=== PATIENT | female | born 1950 | race African-American/Black ===

== ENCOUNTER 2018-11-05 11:49 | Inpatient (IN) | payer OTHER ==
[2018-11-05] MEDS ORDERED: morphine CARPU-JECT 4 MG/1 ML DISP.SYRIN IVPUSH ONE (12:12)
--- NOTE | 2018-11-05 12:20 | PDOC ---
History of Present Illness - General Chief Complaint: Injury Stated Complaint: FALL Time Seen by Provider: 11/05/18 12:06 - History of Present Illness Initial Comments: Ms. Darling is a 67 y/o female with hx of HTN, DM, presenting s/p mechanical fall prior to arrival. Reports that she was walking through a wet lobby in her apartment complex when she slipped. Landed on her left elbow and left hip. Reports left leg and hip pain 12/15. Denies head injury, denies LOC. Denies neck pain. Denies dizziness or lightheadedness or heart palpitations prior to fall. Denies left arm pain. Meds: takes aspirin, no other blood thinners Past History - Past Medical History Allergies/Adverse Reactions: Allergies Allergy/AdvReac Type Severity Reaction Status Date / Time No Known Drug Allergies Allergy Verified 11/05/18 12:03 Home Medications: Ambulatory Orders Lisinopril [Prinivil] 30 mg PO DAILY 05/17/15 Verapamil HCl [Verapamil ER] 240 mg PO DAILY 05/17/15 Insulin Sliding Scale [Novolog Vial Sliding Scale -] See Protocol SCJ TID Sitagliptin Phosphate [Januvia] 100 mg PO DAILY 11/05/18 Anemia: No Asthma: No Cancer: Yes (Gallbladder, LIVER) Cardiac Disorders: No CVA: No COPD: No CHF: No Dementia: No Diabetes: Yes GI Disorders: No Disorders: No HTN: Yes Hypercholesterolemia: No Liver Disease: No Seizures: No Thyroid Disease: No - Surgical History Abdominal Surgery: Yes (LIVER) Appendectomy: No Cardiac Surgery: No Cholecystectomy: No Lung Surgery: No Neurologic Surgery: No Orthopedic Surgery: No - Immunization History Immunization Up to Date: No - Suicide/Smoking/Psychosocial Hx Smoking Status: No Smoking History: Never smoked Have you smoked in the past 12 months: No Number of Cigarettes Smoked Daily: 0 If you are a former smoker, when did you quit?: 1979 Information on smoking cessation initiated: No Hx Alcohol Use: No Drug/Substance Use Hx: No Substance Use Type: None Hx Substance Use Treatment: No Review of Systems - Review of Systems Comments:: ROS GENERAL/CONSTITUTIONAL: No fever or chills. No weakness._ HEAD, EYES, EARS, NOSE AND THROAT: No change in vision. No ear pain or discharge. No sore throat._ CARDIOVASCULAR: No chest pain or shortness of breath_ RESPIRATORY: Denies cough, hemoptysis_ GASTROINTESTINAL: No nausea, vomiting, diarrhea or constipation._ GENITOURINARY: No dysuria, frequency, or change in urination._ MUSCULOSKELETAL: No neck or back pain. Reports left hip and leg swelling and pain. SKIN: No rash. No bruises. NEUROLOGIC: No headache, vertigo, loss of consciousness, or change in strength/ sensation._ ENDOCRINE: No increased thirst. No abnormal weight change_ HEMATOLOGIC/LYMPHATIC: No anemia, easy bleeding, or history of blood clots._ ALLERGIC/IMMUNOLOGIC: No hives or skin allergy._ *Physical Exam - Vital Signs Last Vital Signs Temp Pulse Resp BP Pulse Ox 98.7 F 77 21 H 201/107 H 100 11/05/18 12:00 11/05/18 12:00 11/05/18 12:00 11/05/18 12:11/05/18 12:00 - Physical Exam Comments: GENERAL: Awake, alert, and oriented to person/place/time, in moderate distress. HEAD: No signs of trauma, normocephalic, atraumatic. No perry signs or raccoon' s eyes. EYES: PERRLA, EOMI, sclera anicteric, conjunctiva clear. ENT: Hearing grossly normal, nares patent, oropharynx clear without exudates. No uvular deviation. Moist mucosa. NECK: Normal ROM, supple, no lymphadenopathy, JVD, or masses_ LUNGS: No distress, speaks in full sentences, clear to auscultation bilaterally. HEART: Regular rate and rhythm, normal S1 and S2, no murmurs appreciated, peripheral pulses normal and equal bilaterally. ABDOMEN: Soft, nontender, normoactive bowel sounds. No guarding, no rebound. No masses. EXTREMITIES: Upper extremities - normal inspection, no bruises, 5/5 strength and sensation bilaterally. LLE - limited ROM 2/2 pain, TTP over lateral aspect of thigh and lateral aspect of hip. No bruising. 2+ pedal pulses. Sensation intact distally. Flexion/ extension of ankle intact. Possible shortening of left lower extremity. Cap refill < 2 sec. RLE - normal inspection. No bruising. 2+ pedal pulses. Sensation intact and equal bilaterally. Flexion/extension of ankle intact. Cap refill < 2 sec. NEUROLOGICAL: Cranial nerves II through XII grossly intact. Normal speech, no focal sensorimotor deficits _ SKIN: Warm, Dry, normal turgor, no rashes or lesions noted. ED Treatment Course - LABORATORY CBC & Chemistry Diagram: 11/05/18 12:30 11/05/18 15:24 Medical Decision Making - Medical Decision Making 11/05/18 12:15 67F on aspirin presenting s/p mechanical fall. Denies head injury or LOC. No c- spine tenderness. Left leg pain and possible femur fx and possible shortening of left leg. Neurovascularly intact distally. Will obtain CBC, CMP, PT/PTT/INR, type and screen, CT head, XR left hip/pelvis/ femur 11/05/18 14:08 CT head shows no acute intracranial pathology. XR hip/pelvis/femur shows no fracture. 11/05/18 14:30 Patient reassessed. Continues to have pain in the left thigh and hip. Difficult to sit, stand, and ambulate 2/2 pain though reports that morphine helped control some pain. Ambulation trial after 2 percocet PO. 11/05/18 16:32 Pt reassessed. Able to sit up and stand up with minimal pain, but requires two person assistance to walk with pain on the posterior thigh. Lives in a 1 story apartment with two daughters. No stairs. 11/05/18 16:45 PT office called several times for consult and evaluation request. Was not able to connect by phone. 11/05/18 17:11 Discussed with the patient and family members, who are in agreement to admit the patient overnight for pain control and physical therapy consult in the morning. 11/05/18 18:[address] Goodson who agrees to admit the patient. *DC/Admit/Observation/Transfer Diagnosis at time of Disposition: Leg pain Qualifiers: Laterality: left Qualified Code(s): M79.605 - Pain in left leg - Discharge Dispostion Condition at time of disposition: Stable Decision to Admit order: Yes - Referrals Referrals: Joel Goodson MD [Primary Care Provider] - - Patient Instructions - Post Discharge Activity
[2018-11-05] MEDS ORDERED: MORPHINE SULFATE 2 MG/ML VIAL ONE (12:33)
[2018-11-05 12:41] LABS: BASO % 1.5 % (0-2.0); EOS % 1.8 % (0-4.5); HEMATOCRIT 36.3 % (32.4-45.2); HEMOGLOBIN 12.5 GM/dL (10.7-15.3); LYMPH % 33.2 % (8-40); MCHC 34.3 g/dl (32.0-36.0); MEAN CELL VOLUME 90.5 fl (80-96); MEAN PLT VOLUME 9.4 fl (7.5-11.1); MONO % 10.6 % (3.8-10.2); NEUT % 52.9 % (42.8-82.8); PLATELET COUNT 277 K/MM3 (134-434); RBC 4.02 M/mm3 (3.60-5.2); RDW 14.8 % (11.6-15.6); WHITE BLOOD COUNT 6.2 K/mm3 (4.0-10.0)
[2018-11-05 12:55] LABS: INR 1.05 (0.83-1.09); PROTHROMBIN TIME (PATIENT) 12.4 SEC (9.7-13.0)
[2018-11-05 12:58] LABS: ACTIVATED PTT 37.3 SECONDS (25.2-36.5)
--- NOTE | 2018-11-05 14:41 | PDOC ---
Documentation entered by Beba Chandra SCRIBE, acting as scribe for Stanford lBas MD. Stanford Blas MD: This documentation has been prepared by the jackibe, Beba Chandra SCRIBE, under my direction and personally reviewed by me in its entirety. I confirm that the documentation accurately reflects all work, treatment, procedures, and medical decision making performed by me. Attending Attestation - Resident Resident Name: Philip Trevizohan - ED Attending Attestation I have performed the following: I have examined & evaluated the patient, The case was reviewed & discussed with the resident, I agree w/resident's findings & plan, Exceptions are as noted - HPI HPI: 11/05/18 12:43 The patient is a 67-year-old female, with a past medical history of HTN, DM, gallbladder ca, and liver ca, who presents to the ED s/p mechanical fall today. The patient states that she was walking through the lobby of her apartment complex and slipped and fell on the wet floor. Patient landed on her LT elbow and LT hip. She is now complaining of L thigh and LT hip pain that is 9/10 in severity. She denies any head trauma or loss of consciousness. The patient denies any chest pain, palpitations, or shortness of breath. Denies any fevers, chills, nausea, vomiting, diarrhea, or abdominal pain. Allergies: NKDA PCP: Dr. Hamzah Maldonado - Physicial Exam PE: 11/05/18 12:44 GENERAL: Awake, alert, and fully oriented, in no acute distress. HEAD: No signs of trauma EYES: PERRLA, EOMI, sclera anicteric, conjunctiva clear ENT: Auricles normal inspection, hearing grossly normal, nares patent, oropharynx clear without exudates. Moist mucosa NECK: Nontender, no stepoffs, Normal ROM, supple, no lymphadenopathy, JVD, or masses LUNGS: Breath sounds equal, clear to auscultation bilaterally. No wheezes, and no crackles HEART: Regular rate and rhythm, normal S1 and S2, no murmurs, rubs or gallops ABDOMEN: Soft, nontender, normoactive bowel sounds. No guarding, no rebound. No masses EXTREMITIES: + TTP L femur, no deformity or shortening, No clubbing or cyanosis. No cords, erythema, or tenderness NEUROLOGICAL: Cranial nerves II through XII intact. 5/5 strength and sensation in all extremities, Normal speech, normal gait, normal cerebellar function SKIN: Warm, Dry, normal turgor, no rashes or lesions noted. - Medical Decision Making 11/05/18 14:44 67 F with L hip and thigh pain after mechanical fall today. - XR with no acute fx - Pt received morphine 4mg IV Pt reassessed after XR and morphine - still with severe pain, inability to bear weight or ambulate Will administer 2 percocet and reassess 11/05/18 17:16 Pt reassessed - still with significant difficulty standing Attempted to call for PT eval, but no response Will admit for pain control and PT
[2018-11-05 16:03] LABS: ALBUMIN 3.3 g/dl (3.4-5.0); BILIRUBIN,TOTAL 0.4 mg/dL (0.2-1); BLOOD UREA NITROGEN 14.7 mg/dL (7-18); CALCIUM 8.9 mg/dL (8.5-10.1); TOT PROT 7.5 g/dl (6.4-8.2)
[2018-11-05] MEDS ORDERED: morphine CARPU-JECT 2 MG/1 ML DISP.SYRIN IM ONE (19:07)
[2018-11-05] MEDS ORDERED: MEPERIDINE HCL 50 MG/ML VIAL IM PRN (20:25)
[2018-11-05] MEDS ORDERED: INSULIN (LEVEMIR) 100 UNITS/ML UNITS SQ SCH (22:00)
[2018-11-06 00:05] VITALS: BMI 32.3
[2018-11-06] MEDS: INSULIN SLIDING SCALE (NOVOLOG) 1 VIAL SQ SCH ×2 (07:13→12:44)
[2018-11-06] MEDS ORDERED: LISINOPRIL 10 MG TABLET (FP) PO SCH (10:00)
[2018-11-06] MEDS ORDERED: VERAPAMIL HCL 240 MG E.R. TABLET PO SCH (10:00)
--- NOTE | 2018-11-06 10:03 | HP ---
DATE OF ADMISSION: 11/05/2018 HISTORY OF PRESENT ILLNESS: This is a 67-year-old female known to have diabetes, hypertension, CA of the gallbladder resected 4 years ago. No new complaints. Yesterday, she fell in the hallway and was brought to the emergency room with complaints of severe pain, left hip and left elbow. Workup in the ER was negative, no fracture. This morning, patient still has pain in the left hip, but she wants to go home. PHYSICAL EXAMINATION: General: Awake, alert, oriented, not in distress. Vital signs: BP 130/80, pulse 72, respirations 20, temperature 98. HEENT: Unremarkable. Neck: Supple. No JVD. Lungs: Clear. Heart: S1, S2 normal. No S3, S4. Abdomen: Soft. Extremities: Legs, no edema. Neurologic: Grossly normal. LABORATORY REPORTS: WBC 6, hemoglobin 12.5, hematocrit 36.3. Chemistry: Electrolytes are normal, blood sugar 179. INR 1. X-rays of the hip, elbow, and CT of the head evaluated; nothing, no fracture. IMPRESSION: Patient has pain, left hip status post fall. PLAN: Continue present mediations, pain killers. Can be discharged home. observation status. Kyle [id number]
[2018-11-06] MEDS ORDERED: PT OWN MED DRAWER 7, Y5N ONE (10:08)
[2018-11-06 10:25] VITALS: BP 156/96; PULSE 85; TEMP 98.3
[2018-11-06] MEDS ORDERED: ACETAMINOPHEN WITH CODEINE 300MG/30MG TABLET PO ONE (11:30)
--- NOTE | 2018-11-06 14:15 | EKG ---
Test Reason : Blood Pressure : / mmHG Vent. Rate : 067 BPM Atrial Rate : 067 BPM P-R Int : 144 ms QRS Dur : 082 ms QT Int : 420 ms P-R-T Axes : 055 012 007 degrees QTc Int : 443 ms NORMAL SINUS RHYTHM NONSPECIFIC T WAVE ABNORMALITY WHEN COMPARED WITH ECG OF 17-FEB-2014 09:40, NONSPECIFIC T WAVE ABNORMALITY, WORSE IN LATERAL LEADS Confirmed by HESHAM ANDREA MD ([id number]) on 11/06/2018 2:15:26 PM Referred By: Confirmed By:HESHAM ANDREA MD
== END 2018-11-06 13:39 | disposition home or self-care (01) | DRG 556 ==
LOC: JER 11:49 → JERBED 17:59 → J7W 19:56
PROVIDERS: ADMIT Internal Medicine; ATTEND Internal Medicine
DX: M79.605 Pain in left leg (principal); I10 Essential (primary) hypertension; E11.9 Type 2 diabetes mellitus without complications; W01.0XXA Fall on same level from slipping, tripping and stumbling without subsequent striking against object, initial encounter; Z85.05 Personal history of malignant neoplasm of liver; Y92.238 Other place in hospital as the place of occurrence of the external cause; Z85.89 Personal history of malignant neoplasm of other organs and systems
CPT/HCPCS: 36415; 70450-TC; 73523-TC-FY; 73552-TC-LT-FY; 80053; 82962; 85025; 85610; 85730; 86850; 86900; 86901; 93005; 93010; 97116-GP; 97161-GP; 99284-25; J2175

== ENCOUNTER 2019-05-04 12:44 | Inpatient (IN) | payer OTHER ==
--- NOTE | 2019-05-04 13:39 | PDOC ---
*Physical Exam - Vital Signs Last Vital Signs Temp Pulse Resp BP Pulse Ox 98.1 F 106 H 17 139/82 97 05/04/19 12:48 05/04/19 12:48 05/04/19 12:48 05/04/19 12:48 05/04/19 12:48 ED Treatment Course - LABORATORY CBC & Chemistry Diagram: 05/04/19 14:00 05/04/19 14:00 Medical Decision Making - Medical Decision Making 05/04/19 13:35 Patient seen and evaluated as pre-attending with Dr. Trevizo (PGY-1) 68 y/o female with a PMHx of GB carcinoma, hysterectomy presents w/5 day h/o nausea one day h/o bilious vomiting. No fevers/no chills. Last BM earlier today and was small and of harder consistency than normal. PE significant for tachycardia at presentation (not tachycardic on my exam) and RLQ TTP w/peritoneal sign. Will evaluate with CTAP - consider early appendicitis, SBO; GI cocktail, belly labs. No epigastric TTP - low clinical suspicion for epigastric pain as anginal equivalent. Reassess. 05/04/19 14:33 CTAP:There is possible slight concentric diffuse appendiceal wall hyperenhancement - ? possible early subtle acute appendicitis. Correlate clinically. 05/04/19 18:33 Dr. Trevizo discussed case w/Dr. Vásquez 05/04/19 18:44 Dr. Vásquez to evaluate patient @ bedside tomorrow morning. NPO + Fluid resuscitation Will admit to Dr. Goodson Discharge - Discharge Information Problems reviewed: Yes Clinical Impression/Diagnosis: Abdominal pain Condition: Fair - Follow up/Referral Referrals: Joel Goodson MD [Primary Care Provider] - - Patient Discharge Instructions - Post Discharge Activity
[2019-05-04] MEDS ORDERED: SODIUM CHLORIDE 0.9% 500 ML INFUS.BAG IV ONE ×2 (13:44→18:42)
[2019-05-04] MEDS ORDERED: ONDANSETRON 4 MG/2 ML VIAL IVPUSH ONE ×2 (13:44→18:18)
--- NOTE | 2019-05-04 13:45 | PDOC ---
History of Present Illness - General Chief Complaint: Weakness Stated Complaint: WEAKNESS Time Seen by Provider: 05/04/19 13:24 - History of Present Illness Initial Comments: Ms. Darling is a 68 y/o female with PMH significant for DM, HTN, presenting today for nausea and vomiting that started yesterday. Reports numerous episodes of vomiting that started yesterday evening. Reports that the vomit was originally orange in color but now is green. Denies fever, reports chills. Denies cough. Reports mild abdominal pain on the right side diffusely. Reports constipation. Denies dysuria/diarrhea. No sick contacts. No recent travel. Had rice and beans for dinner last night. SurgHx: hx of gallbladder CA s/p resection, hysterectomy Past History - Past Medical History Allergies/Adverse Reactions: Allergies Allergy/AdvReac Type Severity Reaction Status Date / Time No Known Drug Allergies Allergy Verified 05/04/19 12:47 Home Medications: Ambulatory Orders Lisinopril [Prinivil] 30 mg PO DAILY 05/17/15 Verapamil HCl [Verapamil ER] 240 mg PO DAILY 05/17/15 Insulin Degludec [Tresiba Flextouch U-100] 100 unit SQ HS 11/05/18 Insulin Sliding Scale [Novolog Vial Sliding Scale -] See Protocol SCJ TID Sitagliptin Phosphate [Januvia] 100 mg PO DAILY 11/05/18 Anemia: No Asthma: No Cancer: Yes (Gallbladder, LIVER) Cardiac Disorders: No CVA: No COPD: No CHF: No Dementia: No Diabetes: Yes GI Disorders: No Disorders: No HTN: Yes Hypercholesterolemia: No Liver Disease: No Seizures: No Thyroid Disease: No - Surgical History Abdominal Surgery: Yes (LIVER BIOPSY) Appendectomy: No Cardiac Surgery: No Cholecystectomy: Yes Lung Surgery: No Neurologic Surgery: No Orthopedic Surgery: No - Immunization History Immunization Up to Date: No - Psycho Social/Smoking Cessation Hx Smoking Status: No Smoking History: Never smoked Have you smoked in the past 12 months: No Number of Cigarettes Smoked Daily: 0 If you are a former smoker, when did you quit?: 1979 Hx Alcohol Use: No Drug/Substance Use Hx: No Substance Use Type: None Hx Substance Use Treatment: No Review of Systems - Review of Systems Comments:: GENERAL/CONSTITUTIONAL: No fever or chills. No weakness._ HEAD, EYES, EARS, NOSE AND THROAT: No change in vision. No change in hearing. No sore throat._ CARDIOVASCULAR: No chest pain or shortness of breath_ RESPIRATORY: Denies cough, hemoptysis_ GASTROINTESTINAL: Reports nausea, vomiting, diarrhea. GENITOURINARY: No dysuria, frequency, or change in urination._ MUSCULOSKELETAL: No joint or muscle swelling or pain. No neck or back pain._ SKIN: No rash_ NEUROLOGIC: No headache, vertigo, loss of consciousness, or change in strength/ sensation._ ENDOCRINE: No increased thirst. No abnormal weight change_ HEMATOLOGIC/LYMPHATIC: No anemia, easy bleeding, or history of blood clots._ ALLERGIC/IMMUNOLOGIC: No hives or skin allergy._ *Physical Exam - Vital Signs Last Vital Signs Temp Pulse Resp BP Pulse Ox 98.1 F 106 H 17 139/82 97 05/04/19 12:48 05/04/19 12:48 05/04/19 12:48 05/04/19 12:48 05/04/19 12:48 - Physical Exam GENERAL: Awake, alert, and oriented to person/place/time, in no acute distress_ HEAD: No signs of trauma, normoc ephalic, atraumatic _ EYES: PERRLA, EOMI, sclera anicteric, conjunctiva clear_ ENT: Hearing grossly normal, nares patent, oropharynx clear without exudates. No uvular deviation. Moist mucosa_ NECK: Normal ROM, supple, no lymphadenopathy, JVD, or masses_ LUNGS: No distress, speaks in full sentences, clear to auscultation bilaterally _ HEART: Regular rate and rhythm, normal S1 and S2, no murmurs appreciated, peripheral pulses normal and equal bilaterally._ ABDOMEN: Soft, diffuse TTP RLQ and RUQ, normoactive bowel sounds. No guarding, no rebound. No masses_ EXTREMITIES: Normal inspection, Normal range of motion, no edema. No clubbing or cyanosis_ NEUROLOGICAL: Cranial nerves II through XII grossly intact. Normal speech, normal gait, no focal sensorimotor deficits _ SKIN: Warm, Dry, normal turgor, no rashes or lesions noted_ ED Treatment Course - LABORATORY CBC & Chemistry Diagram: 05/04/19 14:00 05/04/19 14:00 Medical Decision Making - Medical Decision Making 05/04/19 13:44 68F hx of DM HTN presenting with nausea and vomiting over the past day. DDx is broad and includes viral gastroenteritis vs intra-abdominal infection vs SBO. -cbc, cmp, lipase, lactic -ua, ucx -fluids, zofran 05/04/19 18:00 CT abd w/ contrast shows possible subtle subacute appendicitis. Labs reviewed. Laboratory Tests 05/04/19 05/04/19 05/04/19 14:00 14:00 14:00 WBC 7.2 RBC 4.60 Hgb 14.0 Hct 42.1 D MCV 91.4 MCH 30.5 MCHC 33.4 RDW 14.4 Plt Count 214 D MPV 8.4 D Absolute Neuts (auto) 6.5 Neutrophils % 89.3 H D Lymphocytes % 5.9 L D Monocytes % 4.6 Eosinophils % 0.1 D Basophils % 0.1 Nucleated RBC % 0 Sodium 137 Potassium 4.6 Chloride 104 Carbon Dioxide 27 Anion Gap 6 L BUN 21.7 H Creatinine 1.2 Est GFR (CKD-EPI)AfAm 54.16 Est GFR (CKD-EPI)NonAf 46.73 Random Glucose 155 H Lactic Acid 1.9 Calcium 8.9 Total Bilirubin 0.8 AST 38 H ALT 41 Alkaline Phosphatase 88 Total Protein 7.9 Albumin 3.6 Lipase Urine Color Urine Appearance Urine pH Ur Specific [place] Urine Protein Urine Glucose (UA) Urine Ketones Urine Blood Urine Nitrite Urine Bilirubin Urine Urobilinogen Ur Leukocyte Esterase Urine WBC (Auto) Urine RBC (Auto) Urine Casts (Auto) U Pathogenic Cast Auto U Epithel Cells (Auto) Urine Bacteria (Auto) 05/04/19 05/04/19 14:00 17:00 WBC RBC Hgb Hct MCV MCH MCHC RDW Plt Count MPV Absolute Neuts (auto) Neutrophils % Lymphocytes % Monocytes % Eosinophils % Basophils % Nucleated RBC % Sodium Potassium Chloride Carbon Dioxide Anion Gap BUN Creatinine Est GFR (CKD-EPI)AfAm Est GFR (CKD-EPI)NonAf Random Glucose Lactic Acid Calcium Total Bilirubin AST ALT Alkaline Phosphatase Total Protein Albumin Lipase 44 L Urine Color Yellow Urine Appearance Cloudy Urine pH 6.5 Ur Specific [place] 1.023 Urine Protein Trace Urine Glucose (UA) Negative Urine Ketones Negative Urine Blood Negative Urine Nitrite Negative Urine Bilirubin Negative Urine Urobilinogen 1.0 Ur Leukocyte Esterase 1+ H Urine WBC (Auto) 9 Urine RBC (Auto) 1 Urine Casts (Auto) 13 U Pathogenic Cast Auto None U Epithel Cells (Auto) 12.3 Urine Bacteria (Auto) 916.0 05/04/19 18:40 D/w Dr. Vásquez, who recommends fluid resuscitation at 1L bolus and 150 cc/hr NS. Requests that the patient be admitted and she will reassess in the morning. Requests no antibiotics and no narcotic pain medications until she is able to assess the patient in the morning. Reports that the patient be made NPO. 05/04/19 20:04 D/w Dr. Vogt who accepts the patient for Dr. Goodson. Discharge - Discharge Information Problems reviewed: Yes Clinical Impression/Diagnosis: Abdominal pain Condition: Fair - Admission Yes - Follow up/Referral - Patient Discharge Instructions - Post Discharge Activity
[2019-05-04 14:42] LABS: BASO % 0.1 % (0-2.0); EOS % 0.1 % (0-4.5); HEMATOCRIT 42.1 % (32.4-45.2); LYMPH % 5.9 % (8-40); MCH 30.5 pg (25.7-33.7); MCHC 33.4 g/dl (32.0-36.0); MEAN CELL VOLUME 91.4 fl (80-96); MEAN PLT VOLUME 8.4 fl (7.5-11.1); MONO % 4.6 % (3.8-10.2); NEUT % 89.3 % (42.8-82.8); PLATELET COUNT 214 K/MM3 (134-434); RDW 14.4 % (11.6-15.6); WHITE BLOOD COUNT 7.2 K/mm3 (4.0-10.0)
[2019-05-04] MEDS ORDERED: ONDANSETRON 4 MG/2 ML VIAL ONE ×2 (15:07→18:43)
[2019-05-04] MEDS ORDERED: ONDANSETRON *ODT* 4 MG TABLET ONE (15:07)
[2019-05-04 15:26] LABS: ALBUMIN 3.6 g/dl (3.4-5.0); BILIRUBIN,TOTAL 0.8 mg/dL (0.2-1); BLOOD UREA NITROGEN 21.7 mg/dL (7-18); CALCIUM 8.9 mg/dL (8.5-10.1); CREATININE 1.2 mg/dL (0.55-1.3); POTASSIUM 4.6 mmol/L (3.5-5.1); TOT PROT 7.9 g/dl (6.4-8.2)
[2019-05-04 17:47] LABS: EPI CELLS 12.3 /HPF (0-5/HPF); HYALINE CASTS 13 /lpf (0-8); PH,URINE 6.5 (5.0-8.0); URINE APPEARANCE CLOUDY; URINE BILIRUBIN NEGATIVE (NEGATIVE); URINE COLOR YELLOW; URINE GLUCOSE (UA) NEGATIVE (NEGATIVE); URINE KETONE NEGATIVE (NEGATIVE); URINE LEUK ESTERASE 1+ (NEGATIVE); URINE NITRITE NEGATIVE (NEGATIVE); URINE PROTEIN TRACE (NEGATIVE); URINE RBC 1 /hpf (0-4); URINE WBC 9 /hpf (0-5)
[2019-05-04] MEDS ORDERED: SODIUM CHLORIDE 1,000 ML IV SCH ×2 (18:45→20:45)
[2019-05-04] MEDS ORDERED: ONDANSETRON 4 MG/2 ML VIAL IVPUSH PRN (20:33)
[2019-05-04] MEDS ORDERED: ACETAMINOPHEN 1000 MG/100 ML VIAL (NON FORMULARY) IVPB PRN (20:35)
[2019-05-04] MEDS: PANTOPRAZOLE SODIUM 40 MG VIAL IVPUSH SCH (21:00)
[2019-05-04] MEDS ORDERED: PANTOPRAZOLE SODIUM 40 MG VIAL ONE (21:01)
--- NOTE | 2019-05-04 22:47 | PDOC ---
Documentation entered by Mello Altamirano SCRIBE, acting as scribe for Alexandre Hunt MD. Alexandre Hunt MD: This documentation has been prepared by the Adarsh valdez Daniel, SCRIBE, under my direction and personally reviewed by me in its entirety. I confirm that the documentation accurately reflects all work, treatment, procedures, and medical decision making performed by me. Attending Attestation - Resident Resident Name: Mike Trevizo - ED Attending Attestation I have performed the following: I have examined & evaluated the patient, The case was reviewed & discussed with the resident, I agree w/resident's findings & plan, Exceptions are as noted - HPI HPI: 05/04/19 13:40 The patient is a 68 year old female with a past medical history of HTN, gallbladder cancer, liver cancer, hysterectomy, and diabetes here today for evaluation of vomiting. The patient reports that she developed nausea 5 days which worsened yesterday when she developed vomiting. She describes her emesis as orange first which then turned green. She also notes associated chills, constipation, and right sided abdominal pain. SHe reports a small hard BM today. Patient denies headache, lightheadedness. Denies fever. Denies chest pain, shortness of breath. Denies diarrhea. Allergies: NKDA PCP: Joel Goodson - Physicial Exam PE: 05/04/19 13:40 GENERAL: Awake, alert, and fully oriented, in no acute distress but appears uncomfortable EYES: PERRLA, EOMI, sclera anicteric, conjunctiva clear ENT: Oropharynx clear without exudates. Moist mucosa NECK: Normal ROM, supple, no lymphadenopathy, JVD, or masses LUNGS: Breath sounds equal, clear to auscultation bilaterally. No wheezes, and no crackles HEART: Regular rate and rhythm, normal S1 and S2, no murmurs, rubs or gallops ABDOMEN: Soft, non distended, +RLQ ttp, no rebound or guarding. Normoactive bowel sounds. No masses. +large well healed scar over RUQ/midline. No CVAT EXTREMITIES: Normal range of motion, no edema. No clubbing or cyanosis. No cords , erythema, or tenderness BACK: No midline spinal tenderness in cervical/thoracic/lumbar region NEUROLOGICAL: Normal speech, CN intact, equal strength and sensation b/l SKIN: Warm, Dry, normal turgor, no rashes or lesions noted. - Medical Decision Making 68yo F presents to the ED with R sided abd pain a/w chills, nausea, emesis, constipation Vitals wnl Exam with RLQ ttp Labs/UA wnl CTAP with possible early appy Case discussed with Dr. Vásquez by Dr. Trevizo, will evaluate pt Pt admitted for further mgmt/dispo
[2019-05-05 00:32] VITALS: BMI 32.6
[2019-05-05 08:24] LABS: BASO % 0.3 % (0-2.0); EOS % 0.8 % (0-4.5); HEMATOCRIT 34.4 % (32.4-45.2); HEMOGLOBIN 11.2 GM/dL (10.7-15.3); LYMPH % 36.4 % (8-40); MCH 30.1 pg (25.7-33.7); MCHC 32.7 g/dl (32.0-36.0); MEAN CELL VOLUME 92.2 fl (80-96); MEAN PLT VOLUME 8.2 fl (7.5-11.1); MONO % 13.2 % (3.8-10.2); NEUT % 49.3 % (42.8-82.8); PLATELET COUNT 167 K/MM3 (134-434); RBC 3.73 M/mm3 (3.60-5.2); RDW 14.6 % (11.6-15.6)
--- NOTE | 2019-05-05 08:40 | HP ---
Admitting History and Physical - Primary Care Physician PCP: Joel Goodson - Admission Chief Complaint: Nausea vomiting History of Present Illness: 68-year-old female history of hypertension type 2 diabetes mellitus invasive CA gallbladder status post resection and resection of right lobe of liver in 2013 at [facility], subsequently received chemotherapy and radiation therapy now doing well, yesterday presented with history of nausea vomiting without any associated fevers chills also complained of mild abdominal pain on arrival to ED patient was afebrile normal CBC BMP, vomiting was multiple, associated with nausea and colicky abdominal pain initially orange-green in color patient denies any dysuria, diarrhea, URTI symptoms, in the ED CT abdomen shows questionable early inflammation appendix, surgery was consulted recommended no narcotic pain medication or antibiotic overnight symptoms improved patient remained afebrile T WBC is trending normal. History Source: Patient Limitations to Obtaining History: No Limitations - Past Medical History Cardiovascular: Yes: HTN Hepatobiliary: Yes: Cholelithiasis Renal/: Yes: Cancer (Gallbladder) Endocrine: Yes: Diabetes Mellitus - Smoking History Smoking history: Never smoked Have you smoked in the past 12 months: No Aproximately how many cigarettes per day: 0 If you are a former smoker, when did you quit?: 1979 - Alcohol/Substance Use Hx Alcohol Use: No Home Medications - Allergies Allergies/Adverse Reactions: Allergies Allergy/AdvReac Type Severity Reaction Status Date / Time No Known Drug Allergies Allergy Verified 05/04/19 12:47 - Home Medications Home Medications: Ambulatory Orders Lisinopril [Prinivil] 30 mg PO DAILY 05/17/15 Verapamil HCl [Verapamil ER] 240 mg PO DAILY 05/17/15 Insulin Degludec [Tresiba Flextouch U-100] 100 unit SQ HS 11/05/18 Insulin Sliding Scale [Novolog Vial Sliding Scale -] See Protocol SCJ TID Sitagliptin Phosphate [Januvia] 100 mg PO DAILY 11/05/18 Family Medical History Family History: Unremarkable Review of Systems - Review of Systems Constitutional: reports: Malaise. denies: Diaphoresis, Fever Eyes: denies: Blind Spots, Blurred Vision HENT: denies: Difficult Swallowing, Ear Discharge Neck: denies: Decreased ROM, Lumps, Pain on Movement Cardiovascular: denies: Chest Pain, Edema, Palpitations Respiratory: denies: Cough, Exercise Intolerance, Hemoptysis Gastrointestinal: reports: Abdominal Pain, Nausea, Vomiting. denies: Diarrhea Genitourinary: denies: Burning, Discharge, Dysuria Breasts: denies: See HPI Musculoskeletal: denies: Back Pain, Crepitus, Decreased ROM, Extremity Pain Integumentary: denies: Bruising, Change in Color Neurological: denies: Change in Speech, Confusion Psychiatric: denies: Altered Sleep Pattern, Anxiety Physical Examination Vital Signs: Vital Signs Temperature 97.9 F 05/05/19 06:00 Pulse Rate 78 05/05/19 06:00 Respiratory Rate 20 05/05/19 06:00 Blood Pressure 126/67 05/05/19 06:00 O2 Sat by Pulse Oximetry (%) 98 05/04/19 23:36 General: Elderly female, comfortable, not in distress HEENT; mucous membranes moist, no anemia, no jaundice, PERRLA, no nystagmus Neck: No JVD, supple, no bruit, thyroid palpably normal, normal carotid pulsations. Chest: Nontender, clear to auscultation bilaterally CVS: S1-S2 regularr no murmur/gallop/rub Abdomen: Nondistended, mild tender, soft, bowel sounds present. Extremities: No edema., No calf tenderness, pulses present BROADCAST JOURNALIST: AO X3 , no gross motor sensory deficit Labs: 05/05/19 07:41 CBC,CMP WBC 4.0 K/mm3 (4.0-10.0) 05/05/19 07:41 RBC 3.73 M/mm3 (3.60-5.2) 05/05/19 07:41 Hgb 11.2 GM/dL (10.7-15.3) 05/05/19 07:41 Hct 34.4 % (32.4-45.2) D 05/05/19 07:41 MCV 92.2 fl (80-96) 05/05/19 07:41 MCH 30.1 pg (25.7-33.7) 05/05/19 07:41 MCHC 32.7 g/dl (32.0-36.0) 05/05/19 07:41 RDW 14.6 % (11.6-15.6) 05/05/19 07:41 Plt Count 167 K/MM3 (134-434) D 05/05/19 07:41 MPV 8.2 fl (7.5-11.1) 05/05/19 07:41 Absolute Neuts (auto) 2.0 K/mm3 (1.5-8.0) 05/05/19 07:41 Neutrophils % 49.3 % (42.8-82.8) D 05/05/19 07:41 Lymphocytes % 36.4 % (8-40) D 05/05/19 07:41 Monocytes % 13.2 % (3.8-10.2) H D 05/05/19 07:41 Eosinophils % 0.8 % (0-4.5) D 05/05/19 07:41 Basophils % 0.3 % (0-2.0) 05/05/19 07:41 Nucleated RBC % 0 % (0-0) 05/05/19 07:41 Sodium 137 mmol/L (136-145) 05/04/19 14:00 Potassium 4.6 mmol/L (3.5-5.1) 05/04/19 14:00 Chloride 104 mmol/L (98-107) 05/04/19 14:00 Carbon Dioxide 27 mmol/L (21-32) 05/04/19 14:00 Anion Gap 6 MMOL/L (8-16) L 05/04/19 14:00 BUN 21.7 mg/dL (7-18) H 05/04/19 14:00 Creatinine 1.2 mg/dL (0.55-1.3) 05/04/19 14:00 Est GFR (CKD-EPI)AfAm 54.16 05/04/19 14:00 Est GFR (CKD-EPI)NonAf 46.73 05/04/19 14:00 Random Glucose 155 mg/dL (74-106) H 05/04/19 14:00 Hemoglobin A1c % 6.9 % (4.2-6.3) H 05/05/19 07:41 Lactic Acid 1.9 mmol/L (0.4-2.0) 05/04/19 14:00 Calcium 8.9 mg/dL (8.5-10.1) 05/04/19 14:00 Total Bilirubin 0.8 mg/dL (0.2-1) 05/04/19 14:00 AST 38 U/L (15-37) H 05/04/19 14:00 ALT 41 U/L (13-61) 05/04/19 14:00 Alkaline Phosphatase 88 U/L (45-117) 05/04/19 14:00 Total Protein 7.9 g/dl (6.4-8.2) 05/04/19 14:00 Albumin 3.6 g/dl (3.4-5.0) 05/04/19 14:00 Lipase 44 U/L (73-393) L 05/04/19 14:00 EKG: Normal sinus rhythm CT abdomen: Status post cholecystectomy and partial hepatic resection, Imaging - Results Cat Scan: Report Reviewed (CT abdomen: Underdistended stomach possibility of concentric thickening, questionable acute appendicitis) Problem List - Problems (1) Abdominal pain Assessment/Plan: Patient symptoms are improving still complaint of nausea vomiting resolved, right lower quadrant tenderness is positive will keep n.p.o. till surgical evaluation, continue Zofran, PPI IV hydration follow-up CBC BMP and clinical course. Problems reviewed: Yes Code(s): R10.9 - UNSPECIFIED ABDOMINAL PAIN (2) Nausea & vomiting Assessment/Plan: Due to acute gastritis/rule out acute appendicitis continue Zofran PPI Problems reviewed: Yes Code(s): R11.2 - NAUSEA WITH VOMITING, UNSPECIFIED (3) Type 2 diabetes mellitus Assessment/Plan: Hold p.o. meds continue correction dose insulin. Problems reviewed: Yes Code(s): E11.9 - TYPE 2 DIABETES MELLITUS WITHOUT COMPLICATIONS (4) Hypertension Assessment/Plan: Well-controlled continue all home medical Problems reviewed: Yes Code(s): I10 - ESSENTIAL (PRIMARY) HYPERTENSION
[2019-05-05 08:44] LABS: ALBUMIN 2.8 g/dl (3.4-5.0); BILIRUBIN,TOTAL 0.5 mg/dL (0.2-1); BLOOD UREA NITROGEN 15.6 mg/dL (7-18); CALCIUM 7.7 mg/dL (8.5-10.1); POTASSIUM 3.8 mmol/L (3.5-5.1); TOT PROT 5.9 g/dl (6.4-8.2)
[2019-05-05] MEDS: PANTOPRAZOLE SODIUM 40 MG VIAL IVPUSH SCH (10:01)
[2019-05-05] MEDS: LISINOPRIL 10 MG TABLET (FP) PO SCH (10:01)
[2019-05-05] MEDS: VERAPAMIL HCL 240 MG E.R. TABLET PO SCH (11:23)
--- NOTE | 2019-05-05 21:51 | CONSULT ---
Consult Consult Specialty:: General Surgery Referred by:: Dayna Trevizo Reason for Consultation:: possible early appendicitis - History of Present Illness Chief Complaint: N/V, RLQ pain, chills, H/A History of Present Illness: 68yo F with HTN, DM, h/o gallbladder CA s/p resection, presented to ER with nausea and vomiting starting Friday after feeling for several days like she was "coming down with something." Her daughter also recently had illness with N/V, similar symptoms, and she did think she might have picked something up from her. Symptoms included cough, sniffle/sneeze, headache, dizziness, chills, constipation (no diarrhea) - last BM Friday. She threw up all Friday night, but Friday the color of her vomit turned green, and she got concerned and came to ER. She was afebrile, with normal wbc, and CT with IV contrast only showed no acute findings except some concentric wall thickening of stomach and possible mild enhancement of appendiceal wall without inflammatory changes. She was admitted to medicine for monitoring and evaluation for possible early appendicitis vs gastroenteritis. She has had IV fluids and been NPO except meds, but no antibiotics or narcotics. Surgery was asked to evaluate. She is seen and examined in bed. She reports feeling better, no pain and no further N/V. She still has not had BM, but is passing gas ok. Her cough is improved and she has not had any fevers. - History Source History Provided By: Patient Limitations to Obtaining History: No Limitations - Past Medical History Cardio/Vascular: Yes: HTN Hepatobiliary: Yes: Cholelithiasis, Other (gallbladder CA s/p resection) Reproductive: Yes: Postmenopausal Endocrine: Yes: Diabetes Mellitus - Past Surgical History Past Surgical History: Yes: Cholecystectomy (with partial hepatectomy), Hysterectomy - Alcohol/Substance Use Hx Alcohol Use: No History of Substance Use: reports: None - Smoking History Smoking history: Former smoker Have you smoked in the past 12 months: No If you are a former smoker, when did you quit?: 1975 - Social History ADL: Independent Home Medications - Allergies Allergies/Adverse Reactions: Allergies Allergy/AdvReac Type Severity Reaction Status Date / Time No Known Drug Allergies Allergy Verified 05/04/19 12:47 - Home Medications Home Medications: Ambulatory Orders Lisinopril [Prinivil] 30 mg PO DAILY 05/17/15 Verapamil HCl [Verapamil ER] 240 mg PO DAILY 05/17/15 Insulin Degludec [Tresiba Flextouch U-100] 100 unit SQ HS 11/05/18 Insulin Sliding Scale [Novolog Vial Sliding Scale -] See Protocol SCJ TID Sitagliptin Phosphate [Januvia] 100 mg PO DAILY 11/05/18 Home Medications (free text): also takes baby ASA daily Family Medical History Family Hx Diabetes: Father Review of Systems - Review of Systems Constitutional: reports: Chills, Loss of Appetite. denies: Fever Eyes: reports: Other (glasses). denies: Recent Change in Vision HENT: reports: Nasal Congestion, Other (recent cough/sniffle/sneeze). denies: Difficult Swallowing Neck: reports: Stiffness. denies: Swollen Glands, Tenderness Cardiovascular: denies: Chest Pain, Palpitations Respiratory: reports: Cough Gastrointestinal: reports: Abdominal Pain (with hpi), Constipation (no BM since Friday), Nausea (with hpi), Vomiting (with hpi). denies: Diarrhea, Vomiting Blood Genitourinary: denies: Burning, Dysuria Musculoskeletal: denies: Back Pain, Joint Pain, Muscle Pain Integumentary: denies: Change in Color, Rash Neurological: reports: Dizziness, Headache Psychiatric: denies: Anxiety, Depression Physical Exam Vital Signs: Vital Signs Temperature 98.1 F 05/05/19 15:10 Pulse Rate 70 05/05/19 15:10 Respiratory Rate 05/05/19 15:10 Blood Pressure 125/68 05/05/19 15:10 O2 Sat by Pulse Oximetry (%) 98 05/04/19 23:36 Constitutional: Yes: No Distress, Calm, Obese Eyes: Yes: Conjunctiva Clear, EOM Intact HENT: Yes: Atraumatic, Normocephalic Neck: Yes: Supple, Trachea Midline Cardiovascular: Yes: Regular Rate and Rhythm Respiratory: Yes: Regular, CTA Bilaterally Gastrointestinal: Yes: Normal Bowel Sounds, Soft, Abdomen, Obese, Tenderness ( mild RLQ - no himanshu/guard). No: Vomiting ...Rectal Exam: Yes: Deferred Renal/: No: CVA Tenderness - Left, CVA Tenderness - Right Musculoskeletal: No: Joint Stiffness, Joint Swelling Extremities: No: Cool, Cyanosis Edema: No Peripheral Pulses WNL: Yes Integumentary: No: Jaundice, Rash Neurological: Yes: Alert, Oriented Psychiatric: Yes: Alert, Oriented Labs: CBC, BMP 05/05/19 07:41 05/05/19 07:41 CMP Sodium 141 mmol/L (136-145) 05/05/19 07:41 Potassium 3.8 mmol/L (3.5-5.1) 05/05/19 07:41 Chloride 112 mmol/L (98-107) H 05/05/19 07:41 Carbon Dioxide 24 mmol/L (21-32) 05/05/19 07:41 Anion Gap 4 MMOL/L (8-16) L 05/05/19 07:41 BUN 15.6 mg/dL (7-18) 05/05/19 07:41 Creatinine 1.0 mg/dL (0.55-1.3) 05/05/19 07:41 Est GFR (CKD-EPI)AfAm 67.51 05/05/19 07:41 Est GFR (CKD-EPI)NonAf 58.25 05/05/19 07:41 Random Glucose 70 mg/dL (74-106) L 05/05/19 07:41 Hemoglobin A1c % 6.9 % (4.2-6.3) H 05/05/19 07:41 Lactic Acid 1.9 mmol/L (0.4-2.0) 05/04/19 14:00 Calcium 7.7 mg/dL (8.5-10.1) L 05/05/19 07:41 Magnesium 2.0 mg/dL (1.8-2.4) 05/05/19 07:41 Total Bilirubin 0.5 mg/dL (0.2-1) 05/05/19 07:41 AST 34 U/L (15-37) 05/05/19 07:41 ALT 34 U/L (13-61) 05/05/19 07:41 Alkaline Phosphatase 62 U/L (45-117) 05/05/19 07:41 Total Protein 5.9 g/dl (6.4-8.2) L 05/05/19 07:41 Albumin 2.8 g/dl (3.4-5.0) L 05/05/19 07:41 Lipase 44 U/L (73-393) L 05/04/19 14:00 Urine Test Results Urine Color Yellow 05/04/19 17:00 Urine Appearance Cloudy 05/04/19 17:00 Urine pH 6.5 (5.0-8.0) 05/04/19 17:00 Ur Specific Century 1.023 (1.010-1.035) 05/04/19 17:00 Urine Protein Trace (NEGATIVE) 05/04/19 17:00 Urine Glucose (UA) Negative (NEGATIVE) 05/04/19 17:00 Urine Ketones Negative (NEGATIVE) 05/04/19 17:00 Urine Blood Negative (NEGATIVE) 05/04/19 17:00 Urine Nitrite Negative (NEGATIVE) 05/04/19 17:00 Urine Bilirubin Negative (NEGATIVE) 05/04/19 17:00 Ur Leukocyte Esterase 1+ (NEGATIVE) H 05/04/19 17:00 Imaging - Results Cat Scan: Report Reviewed, Image Reviewed (s/p partial hepatectomy/seda; s/p hyst; no obstruction, free air or fluid; possible mild wall enhancement of appendix but no inflammatory changes, some concentric wall thickening of stomach vs underdistention?) Problem List - Problems (1) Nausea & vomiting Assessment/Plan: no evidence of appendicitis - sig improvement with bowel rest and IV fluids given recent exposure to daughter with same symptoms, suspect upper GI bug, now resolving will start clears tonight ok for diabetic diet trial in am if tolerates po tomorrow, can d/c home f/u with PMD Thank you for the opportunity to participate in the care of this patient. Code(s): R11.2 - NAUSEA WITH VOMITING, UNSPECIFIED Qualifiers: Vomiting type: bilious vomiting Qualified Code(s): R11.14 - Bilious vomiting (2) RLQ abdominal pain Assessment/Plan: unclear source for RLQ discomfort and mild tenderness, but strongly doubt appendicitis pt has improved without abx or narcotics in last 24 hours see above Code(s): R10.31 - RIGHT LOWER QUADRANT PAIN (3) Hypertension Assessment/Plan: continue home meds would also allow home asa Code(s): I10 - ESSENTIAL (PRIMARY) HYPERTENSION Qualifiers: Hypertension type: essential hypertension Qualified Code(s): I10 - Essential (primary) hypertension (4) Type 2 diabetes mellitus Assessment/Plan: recommend following fingersticks and SSI while in hospital may resume home regimen after d/c Code(s): E11.9 - TYPE 2 DIABETES MELLITUS WITHOUT COMPLICATIONS Qualifiers: Diabetes mellitus usp insulin use: with termite renewal inspector use Diabetes mellitus complication status: without complication Qualified Code(s): E11.9 - Type 2 diabetes mellitus without complications; Z79.4 - exterminator termite (current) use of insulin (5) Class 1 obesity due to excess calories with body mass index (BMI) of 32.0 to 32.9 in adult Code(s): E66.09 - OTHER OBESITY DUE TO EXCESS CALORIES; Z68.32 - BODY MASS INDEX (BMI) 32.0-32.9, ADULT Qualifiers: Serious obesity comorbidity presence: without serious comorbidity Qualified Code(s): E66.09 - Other obesity due to excess calories; Z68.32 - Body mass index (BMI) 32.0-32.9, adult
[2019-05-05] MEDS ORDERED: D5-1/2NS+20 MEQ KCL - 20 MEQ/1,000 ML INFUS.BAG IV SCH (22:30)
[2019-05-06 02:43] VITALS: TEMP 98
--- NOTE | 2019-05-06 09:10 | DS ---
Physical Examination Vital Signs: Vital Signs Temperature 98.0 F 05/06/19 05:50 Pulse Rate 64 05/06/19 05:50 Respiratory Rate 18 05/06/19 05:50 Blood Pressure 113/65 05/06/19 05:50 O2 Sat by Pulse Oximetry (%) 98 05/05/19 21:00 General: Elderly female, comfortable, not in distress HEENT; mucous membranes moist, no anemia, no jaundice, PERRLA, no nystagmus Neck: No JVD, supple, no bruit, thyroid palpably normal, normal carotid pulsations. Chest: Nontender, clear to auscultation bilaterally CVS: S1-S2 regularr no murmur/gallop/rub Abdomen: Nondistended, no tender, soft, bowel sounds present. Extremities: No edema., No calf tenderness, pulses present NEONATAL PEDIATRIC NURSE: AO X3 , no gross motor sensory deficit Labs: CBC, BMP 05/05/19 07:41 05/05/19 07:41 CT abdomen Discharge Summary Problems reviewed: Yes Reason For Visit: ABDOMINAL PAIN Current Active Problems Abdominal pain (Acute) Class 1 obesity due to excess calories with body mass index (BMI) of 32.0 to 32.9 in adult (Acute) Hypertension (Acute) Nausea & vomiting (Acute) RLQ abdominal pain (Acute) Type 2 diabetes mellitus (Acute) Hospital Course: 68-year-old female history of hypertension type 2 diabetes mellitus invasive CA gallbladder status post resection and resection of right lobe of liver in 2013 at [facility], subsequently received chemotherapy and radiation therapy now doing well, yesterday presented with history of nausea vomiting without any associated fevers chills also complained of mild abdominal pain on arrival to ED patient was afebrile normal CBC BMP, vomiting was multiple, associated with nausea and colicky abdominal pain initially orange-green in color patient denies any dysuria, diarrhea, URTI symptoms, in the ED CT abdomen shows questionable early inflammation appendix, surgery was consulted recommended no narcotic pain medication or antibiotic overnight symptoms improved patient remained afebrile T WBC is trended down from baseline. Patient is tolerating p.o. cleared to be discharged. Condition: Fair - Instructions Referrals: Joel Goodson MD [Primary Care Provider] - 2 Weeks Jarret Vásquez MD [Staff Physician] - 2 Weeks Disposition: HOME - Home Medications Comprehensive Discharge Medication List: Ambulatory Orders Lisinopril [Prinivil] 30 mg PO DAILY 05/17/15 Verapamil HCl [Verapamil ER] 240 mg PO DAILY 05/17/15 Insulin Degludec [Tresiba Flextouch U-100] 100 unit SQ HS 11/05/18 Insulin Sliding Scale [Novolog Vial Sliding Scale -] See Protocol SCJ TID Sitagliptin Phosphate [Januvia] 100 mg PO DAILY 11/05/18
[2019-05-06] MEDS: VERAPAMIL HCL 240 MG E.R. TABLET PO SCH (09:58)
[2019-05-06] MEDS: LISINOPRIL 10 MG TABLET (FP) PO SCH (09:58)
[2019-05-06] MEDS ORDERED: PANTOPRAZOLE SOD 40 MG SUSPENSION PACKET PO SCH (10:00)
[2019-05-06] MEDS ORDERED: PANTOPRAZOLE 40 MG TABLET PO SCH (10:00)
[2019-05-06 11:03] LABS: ALBUMIN 2.8 g/dl (3.4-5.0); BILIRUBIN,TOTAL 0.3 mg/dL (0.2-1); BLOOD UREA NITROGEN 11.2 mg/dL (7-18); CALCIUM 8.1 mg/dL (8.5-10.1); POTASSIUM 4.3 mmol/L (3.5-5.1); TOT PROT 6.4 g/dl (6.4-8.2)
[2019-05-06 11:11] VITALS: BP 149/87; PULSE 75
[2019-05-06 11:51] LABS: BASO % 0.2 % (0-2.0); EOS % 1.7 % (0-4.5); HEMATOCRIT 36.3 % (32.4-45.2); HEMOGLOBIN 11.8 GM/dL (10.7-15.3); LYMPH % 40.1 % (8-40); MCH 30.5 pg (25.7-33.7); MCHC 32.6 g/dl (32.0-36.0); MEAN CELL VOLUME 93.3 fl (80-96); MEAN PLT VOLUME 8.7 fl (7.5-11.1); MONO % 18.9 % (3.8-10.2); NEUT % 39.1 % (42.8-82.8); PLATELET COUNT 169 K/MM3 (134-434); RBC 3.89 M/mm3 (3.60-5.2); RDW 14.5 % (11.6-15.6); WHITE BLOOD COUNT 3.6 K/mm3 (4.0-10.0)
== END 2019-05-06 13:53 | disposition home or self-care (01) | DRG 392 ==
LOC: JER 12:44 → JERBED 20:02 → J6S 23:47
PROVIDERS: ADMIT Internal Medicine; ATTEND Internal Medicine
DX: R10.31 Right lower quadrant pain (principal); R11.2 Nausea with vomiting, unspecified; E11.9 Type 2 diabetes mellitus without complications; I10 Essential (primary) hypertension; E66.9 Obesity, unspecified; Z68.32 Body mass index [BMI] 32.0-32.9, adult; Z85.00 Personal history of malignant neoplasm of unspecified digestive organ
CPT/HCPCS: 36415; 74177-TC; 80053; 81003; 82962; 83036; 83605; 83690; 83735; 85025; 87086; 99284-25; J7030; Q9967

== ENCOUNTER 2019-10-24 17:23 | Emergency (ER) | payer OTHER ==
--- NOTE | 2019-10-24 17:30 | PDOC ---
Rapid Medical Evaluation Chief Complaint: Blood Sugar Problem Time Seen by Provider: 10/24/19 17:27 Medical Evaluation: Allergies Allergy/AdvReac Type Severity Reaction Status Date / Time No Known Drug Allergies Allergy Verified 05/04/19 12:47 10/24/19 17:27 68 year old female pmhx HTN DM FS at home 550 Stopped taking her meds, last dose 3 weeks ago Complaining of mild chest pain, very thirst, polyuria PE WNL Plan: DKA R/o Labs FS NS Insulin
[2019-10-24] MEDS ORDERED: SODIUM CHLORIDE 0.9% 500 ML INFUS.BAG IV ONE (17:31)
[2019-10-24] MEDS ORDERED: INSULIN REGULAR HUMAN 100 UNITS/ML *VIAL IVPUSH ONE ×2 (17:32→20:47)
[2019-10-24 17:33] VITALS: TEMP 98
--- NOTE | 2019-10-24 18:20 | PDOC ---
Attending Attestation - Resident Resident Name: Gia Dudley - ED Attending Attestation I have performed the following: I have examined & evaluated the patient, The case was reviewed & discussed with the resident, I agree w/resident's findings & plan, Exceptions are as noted - HPI HPI: 10/24/19 18:17 68y F hx of htn, IDDM, liver ca sp chemo/radaition (2013) presents with complaint of hyperglycemia to 500s - pt has not been taking her medications for the past 30 days. Patient states that she was experimenting to see if her diseases would improve being off her medications. States she has been checking her blood sugar prior to stopping her medications her blood sugar was in the 108-109 range for the first week or 2 after taking it she was in approximately 150 range. However the last 1 to 2 weeks has increased to the 300s and higher,. She also notes that she has been urinating more with mild dysuria feeling lightheaded feeling generally weak, mild epigastric and right upper quadrant pain and some dysuria. She had talked to her PMD who clinically diagnosed her with UTI and started on antibiotic. Izabella ochoa cp, sob, f/c, vomiting, diarrhea, melena, BPR, focal numbness, tingling, weakness, headache, neck pain, back pain. - Physicial Exam PE: 10/24/19 18:55 exam: GENERAL: The patient is awake, alert, and fully oriented, Nontoxic - in no acute distress. HEAD: Normocephalic, atraumatic. EYES: extraocular movements intact, sclera anicteric, conjunctiva clear. ENT: Normal voice, dry mucous membranes. NECK: Normal range of motion, supple LUNGS: Breath sounds equal, clear to auscultation bilaterally. No wheezes, no rhonchi, no rales. HEART: Regular rate and rhythm, normal S1 and S2 without murmur, rub or gallop. ABDOMEN: Soft, nontender, No guarding, no rebound. No CVA tenderness EXTREMITIES: Normal range of motion, no edema. NEUROLOGICAL: No facial assymetry, Normal speech, PSYCH: Normal mood, normal affect. SKIN: Warm, Dry, normal turgor, - Medical Decision Making 10/24/19 18:55 Differential for the patient's symptoms includes but is not limited to possible DKA, hyperglycemia, metabolic metabolic derangements Patient's abdomen soft nontender do not think there is a surgical process at this point, be related to DKA. Will obtain blood work, will obtain EKG screen for ACS Give fluids for hydration Will reassess will sign out to evening team to reassess adn disposition Heart Score/ECG Review - ECG Impressions Comment:: 10/24/19 18:56 Twelve-lead EKG was performed and reviewed by me. There is normal sinus rhythm with a normal rate. Rate of 78 The axis is normal. The intervals are normal. There is normal R wave progression Nonspecific T wave abnormality Discharge - Discharge Information Problems reviewed: Yes Clinical Impression/Diagnosis: Hyperglycemia, Dehydration Fatigue Qualifiers: Fatigue type: unspecified Qualified Code(s): R53.83 - Other fatigue Condition: Improved Disposition: HOME - Follow up/Referral Referrals: Joel Goodson MD [Primary Care Provider] - - Patient Discharge Instructions Patient Printed Discharge Instructions: DI for Dehydration -- Adult, DI for Hyperglycemia -- Adult Additional Instructions: You have been seen in the Emergency Department for your tiredness due to your high sugar. Your EKG, chest X-ray, and labs, including Troponin (a heart enzyme), show no signs concerning for an emergent condition such as a heart attack or pneumonia. Your sugar was extremely high. It resolved with insulin and fluids. It is critical that you take your medications as prescribed. Follow-up with your primary care doctor within 72 hours - call your doctor in the morning to make an appointment. Return to the Emergency Department immediately if you experience chest pain, difficulty breathing, passing out, or any other new or worsening symptom. - Post Discharge Activity
--- NOTE | 2019-10-24 18:25 | PDOC ---
History of Present Illness <Gia Dudley - Last Filed: 10/25/19 00:04> <Cheyanne Colbert - Last Filed: 10/25/19 01:09> - General Chief Complaint: Blood Sugar Problem Stated Complaint: ELEVATED HYPERGLYCEMIA Time Seen by Provider: 10/24/19 17:27 Past History - Medical History Anemia: No Asthma: No Cancer: Yes (Gallbladder, LIVER) Cardiac Disorders: No CVA: No COPD: No CHF: No Dementia: No Diabetes: Yes GI Disorders: No Disorders: No HTN: Yes Hypercholesterolemia: No Liver Disease: No Seizures: No Thyroid Disease: No - Surgical History Abdominal Surgery: Yes (LIVER BIOPSY) Appendectomy: No Cardiac Surgery: No Cholecystectomy: Yes Lung Surgery: No Neurologic Surgery: No Orthopedic Surgery: No - Immunization History Immunization Up to Date: No - Psycho-Social/Smoking History Smoking Status: No Smoking History: Never smoked Have you smoked in the past 12 months: No Number of Cigarettes Smoked Daily: 0 If you are a former smoker, when did you quit?: 1975 - Substance Abuse Hx (Audit-C & DAST Scrn) How often the patient has a drink containing alcohol: Never Score: In Men: 4 or > Positive; In Women: 3 or > Positive: 0 Screen Result (Pos requires Nsg. Audit-10AR): Negative <Gia Dudley - Last Filed: 10/25/19 00:04> <Cheyanne Colbert - Last Filed: 10/25/19 01:09> - Medical History Allergies/Adverse Reactions: Allergies Allergy/AdvReac Type Severity Reaction Status Date / Time No Known Drug Allergies Allergy Verified 10/24/19 17:32 Home Medications: Ambulatory Orders Lisinopril [Prinivil] 30 mg PO DAILY 05/17/15 Verapamil HCl [Verapamil ER] 240 mg PO DAILY 05/17/15 Insulin Degludec [Tresiba Flextouch U-100] 100 unit SQ HS 11/05/18 Insulin Sliding Scale [Novolog Vial Sliding Scale -] See Protocol SCJ TID 11/05/18 Sitagliptin Phosphate [Januvia] 100 mg PO DAILY 11/05/18 *Physical Exam - Vital Signs Last Vital Signs Temp Pulse Resp BP Pulse Ox 98 F 93 H 18 168/98 98 10/24/19 17:27 10/24/19 17:27 10/24/19 17:27 10/24/19 17:27 10/24/19 17:27 <Gia Dudley - Last Filed: 10/25/19 00:04> - Vital Signs Last Vital Signs Temp Pulse Resp BP Pulse Ox 98 F 70 20 152/84 99 10/24/19 17:27 10/24/19 19:30 10/24/19 19:30 10/24/19 19:30 10/24/19 19:30 <Cheyanne Colbert - Last Filed: 10/25/19 01:09> ED Treatment Course - LABORATORY CBC & Chemistry Diagram: 10/24/19 18:15 10/24/19 21:00 - ADDITIONAL ORDERS Additional order review: Laboratory Results 10/24/19 18:01 POC Glucometer 582 10/24/19 18:01 POC Glucometer 582 <Gia Dudley - Last Filed: 10/25/19 00:04> - LABORATORY CBC & Chemistry Diagram: 10/24/19 18:15 10/25/19 00:01 - ADDITIONAL ORDERS Additional order review: Laboratory Results 10/25/19 10/24/19 10/24/19 00:01 21:00 20:34 VBG pH POC VBG pCO2 POC VBG pO2 VBG HCO3 VBG O2 Sat (Yuri) VBG Base Excess Sodium 137 138 Potassium 3.8 3.9 Chloride 105 105 Carbon Dioxide 27 25 Anion Gap 5 L 8 BUN 21.0 H 25.4 H Creatinine 1.1 1.5 H Est GFR (CKD-EPI)AfAm 60.16 41.35 Est GFR (CKD-EPI)NonAf 51.91 35.68 POC Glucometer 554 Random Glucose 255 H 399 H Calcium 8.4 L 8.4 L Total Bilirubin AST ALT Alkaline Phosphatase Creatine Kinase Creatine Kinase Index CK-MB (CK-2) Troponin I B-Natriuretic Peptide Total Protein Albumin Lipase Beta-Hydroxybutyrate 10/24/19 10/24/19 10/24/19 19:00 18:15 18:01 VBG pH 7.387 POC VBG pCO2 41.0 POC VBG pO2 43.6 VBG HCO3 24.1 VBG O2 Sat (Yuri) 79.0 VBG Base Excess -0.9 Sodium 132 L Potassium 6.4 H* Chloride 99 Carbon Dioxide 24 Anion Gap 10 BUN 25.5 H Creatinine 1.8 H Est GFR (CKD-EPI)AfAm 33.17 Est GFR (CKD-EPI)NonAf 28.62 POC Glucometer 582 Random Glucose 545 H* Calcium 9.1 Total Bilirubin 0.7 AST 76 H ALT 48 Alkaline Phosphatase 116 Creatine Kinase 371 H Creatine Kinase Index 0.3 CK-MB (CK-2) 1.2 Troponin I < 0.02 B-Natriuretic Peptide 43.9 Total Protein 7.8 Albumin 3.6 Lipase 31 L Beta-Hydroxybutyrate 3.8 H 10/24/19 10/24/19 10/24/19 20:34 18:15 18:01 RBC 4.32 MCV 92.2 MCHC 33.7 RDW 14.4 MPV 10.3 D Neutrophils % 53.0 D Lymphocytes % 37.9 Monocytes % 7.6 Eosinophils % 0.6 Basophils % 0.9 D POC Glucometer 554 582 - Medications Given in the ED: ED Medications Discontinued Medications Generic Name Dose Route Start Last Admin Trade Name Juan Mq PRN Reason Stop Dose Admin Insulin Human Regular 7 units 10/24/19 17:32 10/24/19 18:31 Novolin R Vial *For Ivpush Or Iv Drip Only* IVPUSH 10/24/19 17:33 Not Given ONCE ONE Insulin Human Regular 10 units 10/24/19 20:17 10/24/19 20:48 Novolin R Vial *For Ivpush Or Iv Drip Only* SQ 10/24/19 20:18 Not Given ONCE ONE Insulin Human Regular 10 units 10/24/19 20:47 10/24/19 20:48 Novolin R Vial *For Ivpush Or Iv Drip Only* IVPUSH 10/24/19 20:48 10 units ONCE ONE Administration Lactated Ringer's 10 ml 10/24/19 20:17 10/24/19 20:23 Lactated Ringers Solution IV 10/24/19 20:18 10 ml ONCE ONE Administration Lactated Ringer's 1,000 ml 10/24/19 22:47 10/24/19 22:52 Lactated Ringers Solution IV 10/24/19 22:48 1,000 ml NOW ONE Administration Sodium Chloride 2,000 ml 10/24/19 17:31 10/24/19 18:23 Normal Saline - IV 10/24/19 17:32 2,000 ml ONCE ONE Administration <Cheyanne Colbert - Last Filed: 10/25/19 01:09> Medical Decision Making - Medical Decision Making 10/24/19 18:23 HPI: 68yo F hx HTN, IDDM, and liver CA (s/p partial resection, chemo, and radiation in 2013) presents from home due to home BGM 550 s/p 1mo noncompliance with HTN or DM medications, c/o 3 days lethargy, nausea, lightheadedness, intermittent palpitations, abdominal discomfort, diffuse body pain, polyuria, polydipsia, and dysuria. No hx similar sx or noncompliance with meds. States hasn't taken any meds for 1 month because wanted to see if her conditions had improved/gone away on own. Dx by UTI over phone (no urine sample) due to dysuria and polyuria by PCP earlier this week and given abx. Denies sick contacts, travel, F/C, vomiting, diarrhea, constipation, blood in stool, headache, URI-like sx, SOB, CP, cough, numbness/tingling, focal weakness, hematuria. PCP - Hamzah ROS: Constitutional: Positive for fatigue, lethargy. Negative for chills, fever, diaphoresis. HENT: Negative for sore throat, rhinorrhea, congestion. Eyes: Negative for visual disturbance. Respiratory: Negative for shortness of breath, cough, and wheezing. Cardiovascular: Positive for palpitations. Negative for chest pain, and leg swel ling. Gastrointestinal: Positive for abdominal discomfort, nausea. Negative for blood in stool, constipation, diarrhea, and vomiting. Genitourinary: Positive for dysuria, polyuria. Negative for dysuria, flank pain, and hematuria. Musculoskeletal: Positive for diffuse body pain. Negative for back pain, and neck pain. Endo: Positive for polydipsia. Skin: Negative for rash. Neurological: Positive for light-headedness, dizziness. Negative for vertigo, syncope, weakness, numbness and headaches. Psychiatric/Behavioral: Negative for behavioral problems and confusion. PE: Gen: Alert, NAD, comfortable-appearing. HEENT: PERRL, EOMI, dry MM, NCAT. No conjunctival pallor. Sclera are non- icteric. CV: Regular rate and rhythm. No murmurs, rubs, or gallops. PULM: No resp distress. CTAB, no wheezes, rales, or rhonchi. ABD: soft, NT/ND, no rebound tenderness or guarding, no CVA tenderness. BACK: No TTP of c/t/l-spine. No step-offs or deformities. MSK: No bony deformities. 2+ pulses in all extremities. NEURO: AAOx3. PERRL. CN 2-12 intact. 5/5 strength in all extremities. Sensation to light touch intact in all extremities. No pronator drift. No dysmetria. No dysdiadochokinesia. No abnormal nystagmus. Normal gait. EXTREMITIES: No cyanosis. No clubbing. No edema. PSYCH: Normal mood and thought pattern. SKIN: Warm and dry. Normal capillary refill. No rashes. No jaundice. MDM: 68yo F hx HTN, IDDM, and liver CA (s/p partial resection, chemo, and radiation in 2013) presents from home due to home BGM 550 s/p 1mo noncompliance with HTN or DM medications, c/o 3 days lethargy, nausea, lightheadedness, intermittent palpitations, abdominal discomfort, diffuse body pain, polyuria, polydipsia, and dysuria. Hemodynamically stable, afebrile, neurologically intact. Ddx: DKA vs hyperglycemia, most likely 2/2 med noncompliance. Also consider infection, metabolic derangement, anemia, ACS/AZ, arrhythmia, PNA, CHF. -BGM 582 -EKG -CXR -CBC,CMP,Cardiac profile,VBG,beta-hydroxybutarate,lipase,BNP -IVF -Dispo: pending workup and reassessment Labs reviewed. Hemolyzed but notable for hyperglycemia without acid gap, LISSETH. -3L IVF -10 units insulin -repeat BMP EKG reviewed: normal sinus rhythm, 78bpm, normal axis, normal intervals, no e/o acute ischemia CXR reviewed: No acute pathology 10/24/19 23:27 Repeat BMP s/p 1L and 30min s/p 10 units insulin: glucose 399, K 3.9, LISSETH. Pt feeling much better. Pending 3rd L IVF, repeat BMP. <Gia Dudley - Last Filed: 10/25/19 00:04> - Medical Decision Making pt signed out from Dr Rodríguez at 7pm pending repeat labs VS reviewed and wnl. initial hemolysis repeat chem with improvement of Cr elevation, component of dehydration K down. normalized, so inital sample indeed hemolyzed hyperglycemia improved, with insulin and IVF no e/o DKA no AG acidosis Discharge in stable condition, insulin use and diabetic diet/care encouraged, PCP followup, return precautions discussed. adequate hydration and supportive care encouraged. 10/25/19 01:08 <Cheyanne Colbert - Last Filed: 10/25/19 01:09> Discharge - Discharge Information Problems reviewed: Yes - Admission No <Gia Dudley - Last Filed: 10/25/19 00:04> <Cheyanne Colbert - Last Filed: 10/25/19 01:09> - Discharge Information Clinical Impression/Diagnosis: Hyperglycemia, Fatigue, Dehydration Condition: Improved Disposition: HOME - Follow up/Referral Referrals: Joel Goodson MD [Primary Care Provider] - - Patient Discharge Instructions Patient Printed Discharge Instructions: DI for Dehydration -- Adult, DI for Hyperglycemia -- Adult Additional Instructions: You have been seen in the Emergency Department for your tiredness due to your high sugar. Your EKG, chest X-ray, and labs, including Troponin (a heart enzyme), show no signs concerning for an emergent condition such as a heart attack or pneumonia. Your sugar was extremely high. It resolved with insulin and fluids. It is critical that you take your medications as prescribed. Follow-up with your primary care doctor within 72 hours - call your doctor in the morning to make an appointment. Return to the Emergency Department immediately if you experience chest pain, difficulty breathing, passing out, or any other new or worsening symptom. - Post Discharge Activity
[2019-10-24 18:52] LABS: BASO % 0.9 % (0-2.0); EOS % 0.6 % (0-4.5); HEMATOCRIT 39.9 % (32.4-45.2); HEMOGLOBIN 13.4 GM/dL (10.7-15.3); LYMPH % 37.9 % (8-40); MCHC 33.7 g/dl (32.0-36.0); MEAN CELL VOLUME 92.2 fl (80-96); MEAN PLT VOLUME 10.3 fl (7.5-11.1); MONO % 7.6 % (3.8-10.2); PLATELET COUNT 199 K/MM3 (134-434); RBC 4.32 M/mm3 (3.60-5.2); RDW 14.4 % (11.6-15.6); WHITE BLOOD COUNT 6.3 K/mm3 (4.0-10.0)
[2019-10-24 19:19] LABS: ALBUMIN 3.6 g/dl (3.4-5.0); ALK PHOS 116 U/L (45-117); BILIRUBIN,TOTAL 0.7 mg/dL (0.2-1); BLOOD UREA NITROGEN 25.5 mg/dL (7-18); CALCIUM 9.1 mg/dL (8.5-10.1); CHLORIDE 99 mmol/L (98-107); CO2 24 mmol/L (21-32); CREATININE 1.8 mg/dL (0.55-1.3); LIPASE 31 U/L (73-393); N-TERMINAL BNP 43.9 pg/ml (5-125); SGOT/AST 76 U/L (15-37); SODIUM 132 mmol/L (136-145); TOT PROT 7.8 g/dl (6.4-8.2)
[2019-10-24 19:31] LABS: VENOUS BASE EXCESS -0.9 mmol/L (-2-2); VENOUS PH 7.387 (7.310-7.410)
[2019-10-24 20:08] LABS: ANION GAP 10 MMOL/L (8-16); SGPT/ALT 48 U/L (13-61)
[2019-10-24 20:11] LABS: GLUCOSE,RANDOM 545 mg/dL (74-106); POTASSIUM 6.4 mmol/L (3.5-5.1)
[2019-10-24] MEDS ORDERED: LACTATED RINGERS SOLUTION 1000 ML INFUS.BAG IV ONE ×2 (20:17→22:47)
[2019-10-24] MEDS ORDERED: INSULIN REGULAR HUMAN 100 UNITS/ML *VIAL SQ ONE (20:17)
[2019-10-24] MEDS ORDERED: INSULIN REGULAR HUMAN 100 UNITS/ML *VIAL ONE (20:27)
[2019-10-24 21:50] LABS: BLOOD UREA NITROGEN 25.4 mg/dL (7-18); CALCIUM 8.4 mg/dL (8.5-10.1); CREATININE 1.5 mg/dL (0.55-1.3); POTASSIUM 3.9 mmol/L (3.5-5.1)
[2019-10-25 00:53] LABS: CALCIUM 8.4 mg/dL (8.5-10.1); CREATININE 1.1 mg/dL (0.55-1.3); POTASSIUM 3.8 mmol/L (3.5-5.1)
[2019-10-25 01:44] VITALS: BP 161/91; PULSE 88
--- NOTE | 2019-10-25 09:09 | EKG ---
Test Reason : Blood Pressure : / mmHG Vent. Rate : 078 BPM Atrial Rate : 078 BPM P-R Int : 146 ms QRS Dur : 080 ms QT Int : 390 ms P-R-T Axes : 055 002 012 degrees QTc Int : 444 ms NORMAL SINUS RHYTHM NONSPECIFIC T WAVE ABNORMALITY ABNORMAL ECG WHEN COMPARED WITH ECG OF 05-NOV-2018 18:29, NO SIGNIFICANT CHANGE WAS FOUND Confirmed by Reynold Pickard ([id number]) on 10/25/2019 9:09:14 AM Referred By: Confirmed By:Reynold Pickard
== END 2019-10-25 01:40 | disposition home or self-care (01) ==
LOC: JER 17:23
PROC: 3E023GC Introduction of Other Therapeutic Substance into Muscle, Percutaneous Approach (ICD-10-PCS; principal; 2019-10-24)
PROC: 3E033GC Introduction of Other Therapeutic Substance into Peripheral Vein, Percutaneous Approach (ICD-10-PCS; principal; 2019-10-24)
DX: E13.65 Other specified diabetes mellitus with hyperglycemia (principal); E86.0 Dehydration
CPT/HCPCS: 36415; 71046-TC-FY; 80048; 80053; 82010; 82550; 82553; 82803; 82962; 83690; 83880; 84484; 85025; 93005; 93010; 99285-25

== ENCOUNTER 2020-06-19 04:45 | Emergency (ER) | payer OTHER ==
[2020-06-19 05:31] VITALS: BP 164/98; PULSE 100; TEMP 98.5; BMI 30.9
[2020-06-19] MEDS ORDERED: LACTATED RINGERS SOLUTION 1000 ML INFUS.BAG IV ONE (05:46)
[2020-06-19] MEDS ORDERED: morphine CARPU-JECT 2 MG/1 ML DISP.SYRIN IVPUSH ONE (05:49)
[2020-06-19 06:13] LABS: BASO % 1.2 % (0-2.0); EOS % 0.3 % (0-4.5); LYMPH % 20.8 % (8-40); MCH 30.6 pg (25.7-33.7); MCHC 34.1 g/dl (32.0-36.0); MEAN CELL VOLUME 89.9 fl (80-96); MEAN PLT VOLUME 7.3 fl (7.5-11.1); MONO % 5.6 % (3.8-10.2); NEUT % 72.1 % (42.8-82.8); PLATELET COUNT 369 K/MM3 (134-434); RBC 4.23 M/mm3 (3.60-5.2); RDW 14.1 % (11.6-15.6); WHITE BLOOD COUNT 11.7 K/mm3 (4.0-10.0)
[2020-06-19 06:30] LABS: VENOUS BASE EXCESS -0.3 mmol/L (-2-2); VENOUS O2 SATURATION 73.9 % (70-80); VENOUS PCO2 30.3 mmHg (38-52); VENOUS PH 7.481 (7.310-7.410)
[2020-06-19 06:37] LABS: CHLORIDE 105 mmol/L (98-107); SODIUM 124 mmol/L (136-145)
[2020-06-19 06:40] LABS: ALBUMIN 2.9 g/dl (3.4-5.0); BLOOD UREA NITROGEN 20.1 mg/dL (7-18); CALCIUM 8.4 mg/dL (8.5-10.1); CO2 24 mmol/L (21-32); GLUCOSE,RANDOM 185 mg/dL (74-106)
[2020-06-19 06:43] LABS: CREATININE 1.2 mg/dL (0.55-1.3)
[2020-06-19 06:45] LABS: TOT PROT 8.7 g/dl (6.4-8.2)
[2020-06-19 06:46] LABS: ALK PHOS 80 U/L (45-117)
[2020-06-19] MEDS ORDERED: SODIUM CHLORIDE 0.9% 500 ML INFUS.BAG IV ONE (06:48)
[2020-06-19] MEDS ORDERED: MORPHINE SULFATE 2 MG/ML VIAL ONE ×2 (06:49→08:27)
[2020-06-19 07:22] LABS: ANION GAP -4 MMOL/L (8-16); SGOT/AST 142 U/L (15-37)
[2020-06-19 07:25] LABS: BILIRUBIN,TOTAL < 0.1 mg/dL (0.2-1)
[2020-06-19 07:27] LABS: POTASSIUM > 10.0 mmol/L (3.5-5.1)
[2020-06-19 08:21] LABS: POTASSIUM 4.4 mmol/L (3.5-5.1)
[2020-06-19 08:23] LABS: BLOOD UREA NITROGEN 17.8 mg/dL (7-18)
[2020-06-19] MEDS ORDERED: MORPHINE SULFATE 2 MG/ML VIAL IVPUSH ONE (08:24)
[2020-06-19] MEDS ORDERED: ONDANSETRON 4 MG/2 ML VIAL IVPUSH ONE (08:25)
[2020-06-19] MEDS ORDERED: ONDANSETRON 4 MG/2 ML VIAL ONE (08:27)
[2020-06-19] MEDS ORDERED: ACETAMINOPHEN INJECTION 100 ML IVPB ONE (11:01)
[2020-06-19] MEDS ORDERED: ACETAMINOPHEN 1000 MG/100 ML VIAL (NON FORMULARY) IVPB ONE (11:01)
[2020-06-19] MEDS ORDERED: metroNIDAZOLE 250 MG TABLET PO ONE (13:04)
[2020-06-19] MEDS ORDERED: CIPROFLOXACIN 500 MG TABLET (RESTRICTED TO ID) PO ONE (13:04)
[2020-06-19] MEDS ORDERED: metroNIDAZOLE 250 MG TABLET ONE (13:07)
== END 2020-06-19 13:32 | disposition home or self-care (01) ==
LOC: JER 04:45
PROC: 3E0333Z Introduction of Anti-inflammatory into Peripheral Vein, Percutaneous Approach (ICD-10-PCS; principal; 2020-06-19)
PROC: 3E033NZ Introduction of Analgesics, Hypnotics, Sedatives into Peripheral Vein, Percutaneous Approach (ICD-10-PCS; 2020-06-19)
PROC: 3E033NZ Introduction of Analgesics, Hypnotics, Sedatives into Peripheral Vein, Percutaneous Approach (ICD-10-PCS; 2020-06-19)
PROC: 3E033GC Introduction of Other Therapeutic Substance into Peripheral Vein, Percutaneous Approach (ICD-10-PCS; 2020-06-19)
DX: K52.9 Noninfective gastroenteritis and colitis, unspecified (principal); R10.84 Generalized abdominal pain
CPT/HCPCS: 36415; 71045-TC-FY; 74177-TC; 80048; 80053; 82010; 82550; 82553; 82803; 83605; 83690; 84484; 85025; 93005; 93010; 99285-25; C9803; J0131; U0003

== ENCOUNTER 2022-06-23 14:58 | Emergency (ER) | payer OTHER ==
[2022-06-23 15:15] VITALS: BP 150/75; PULSE 71; RESP 18; TEMP 98; BMI 30.7
[2022-06-23] MEDS ORDERED: MAG HYDROX/AL HYDROX/SIMETH 30 ML UNIT-DOSE CUP PO ONE (16:28)
[2022-06-23] MEDS ORDERED: FAMOTIDINE 20 MG/50 ML IVPB 20 MG/50 ML MG IVPB ONE ×2 (16:28→16:34)
[2022-06-23] MEDS ORDERED: MAG HYDROX/AL HYDROX/SIMETH 30 ML UNIT-DOSE CUP ONE (16:34)
[2022-06-23 16:57] LABS: ALBUMIN 3.3 g/dl (3.4-5.0); BLOOD UREA NITROGEN 13.2 mg/dL (7-18)
[2022-06-23 17:01] LABS: BILIRUBIN,TOTAL 0.3 mg/dL (0.2-1)
[2022-06-23 17:02] LABS: TOT PROT 7.3 g/dl (6.4-8.2)
[2022-06-23 17:10] LABS: HEMATOCRIT 36.4 % (32.4-45.2); HEMOGLOBIN 12.1 GM/dL (10.7-15.3); MCH 30.9 pg (25.7-33.7); MCHC 33.4 g/dl (32.0-36.0); MEAN CELL VOLUME 92.5 fl (80-96); MEAN PLT VOLUME 8.2 fl (7.5-11.1); PLATELET COUNT 223 10^3/uL (134-434); RBC 3.93 M/mm3 (3.60-5.2); RDW 14.3 % (11.6-15.6); WHITE BLOOD COUNT 7.4 K/mm3 (4.0-10.0)
[2022-06-23 17:11] LABS: INR 1.09 (0.83-1.09); PROTHROMBIN TIME (PATIENT) 12.6 SEC (9.7-13.0)
[2022-06-23 17:13] LABS: ACTIVATED PTT 37.9 SECONDS (25.2-36.5)
[2022-06-23] MEDS ORDERED: SODIUM CHLORIDE 1,000 ML IV STA (19:07)
== END 2022-06-23 20:53 | disposition home or self-care (01) ==
LOC: JER 14:58
PROC: 3E033GC Introduction of Other Therapeutic Substance into Peripheral Vein, Percutaneous Approach (ICD-10-PCS; principal; 2022-06-23)
PROC: 3E0337Z Introduction of Electrolytic and Water Balance Substance into Peripheral Vein, Percutaneous Approach (ICD-10-PCS; 2022-06-23)
DX: R10.11 Right upper quadrant pain (principal); Z20.822 Contact with and (suspected) exposure to COVID-19
CPT/HCPCS: 0241U-QW; 36415; 71045-TC-FY; 74177-TC; 80053; 83690; 84484; 85027; 85379; 85610; 85730; 93005; 93010; 96361; 96365; 99285-25

== ENCOUNTER 2023-05-23 14:46 | Emergency (ER) | payer OTHER ==
[2023-05-23 14:53] VITALS: BP 161/70; PULSE 77; RESP 18; TEMP 97.9; BMI 30.9
[2023-05-23 16:22] LABS: BASO % 0.6 % (0-2.0); HEMATOCRIT 38.8 % (32.4-45.2); LYMPH % 43.7 % (8-40); MCH 31.3 pg (25.7-33.7); MCHC 33.5 g/dl (32.0-36.0); MEAN CELL VOLUME 93.4 fl (80-96); MEAN PLT VOLUME 8.1 fl (7.5-11.1); MONO % 7.7 % (3.8-10.2); PLATELET COUNT 211 10^3/uL (134-434); RBC 4.15 M/mm3 (3.60-5.2); RDW 14.6 % (11.6-15.6); WHITE BLOOD COUNT 8.2 K/mm3 (4.0-10.0)
[2023-05-23 16:43] LABS: POTASSIUM 4.4 mmol/L (3.5-5.1)
[2023-05-23 16:46] LABS: ALBUMIN 3.8 g/dl (3.4-5.0); CALCIUM 9.1 mg/dL (8.5-10.1)
[2023-05-23 16:49] LABS: CREATININE 1.3 mg/dL (0.55-1.3)
[2023-05-23 16:51] LABS: BILIRUBIN,TOTAL 0.3 mg/dL (0.2-1); TOT PROT 7.9 g/dl (6.4-8.2)
[2023-05-23] MEDS ORDERED: ACETAMINOPHEN INJECTION 100 ML IVPB ONE (17:52)
[2023-05-23] MEDS: ACETAMINOPHEN 1000 MG/100 ML BAG IVPB ONE (18:29)
== END 2023-05-23 19:33 | disposition home or self-care (01) ==
LOC: JER 14:46
DX: R42 Dizziness and giddiness (principal); R51.9 Headache, unspecified; Z20.822 Contact with and (suspected) exposure to COVID-19
CPT/HCPCS: 0241U-QW; 36415; 70450-TC; 80053; 82550; 82553; 84484; 85025; 93005; 93010; 99285-25